=== PATIENT | male | born 1995 | race Asian ===

== ENCOUNTER 2019-06-24 14:12 | Emergency (ER) | payer OTHER ==
[~2019-06-24] VITALS: Ht 185.4 cm; Wt 69.8 kg
[2019-06-24 14:59] LABS: BASO % 0.1 % (0.0-1.0); EOS % 0.1 % (0.0-3.0); HEMATOCRIT 43.9 % (42.0-52.0); HEMOGLOBIN 15.3 g/dl (13.5-17.5); LYMPH # 0.4 10^3/uL (1.5-5.0); MEAN CORPUSCULAR HGB CONC 34.9 g/dl (32.0-36.5); MEAN CORPUSCULAR VOLUME 86.1 fl (80.0-96.0); MONO # 0.6 10^3/uL (0.0-0.8); MONO % 3.9 % (0.0-5.0); NEUTROPHILS # 13.4 10^3/uL (1.5-8.5); NEUTROPHILS % 92.6 % (36.0-66.0); PLATELET COUNT, AUTOMATED 259 10^3/uL (150-450); WHITE BLOOD COUNT 14.4 10^3/uL (4.0-10.0)
[2019-06-24 15:23] LABS: INFLUENZA A AMPLIFICATION NEGATIVE (NEGATIVE); INFLUENZA B AMPLIFICATION POSITIVE (NEGATIVE)
[2019-06-24 15:25] LABS: ALBUMIN 4.5 GM/DL (3.2-5.2); ALT/SGPT 32 U/L (12-78); BILIRUBIN,DIRECT 0.4 MG/DL (0.0-0.2); BILIRUBIN,TOTAL 1.7 MG/DL (0.2-1.0); BLOOD UREA NITROGEN 24 MG/DL (7-18); CARBON DIOXIDE LEVEL 27 MEQ/L (21-32); CHLORIDE LEVEL 103 MEQ/L (98-107); GLOMERULAR FILTRATION RATE > 60.0 (>60); GLUCOSE, FASTING 90 MG/DL (70-100); LIPASE 105 U/L (73-393); POTASSIUM SERUM 3.7 MEQ/L (3.5-5.1); SODIUM LEVEL 137 MEQ/L (136-145); TOTAL PROTEIN 7.7 GM/DL (6.4-8.2)
[2019-06-24] MEDS ORDERED: NS 1,000 ML IV ONE (16:00)
[2019-06-24] MEDS ORDERED: IBUPROFEN 800 MG TAB PO ONE (16:00)
[2019-06-24] MEDS ORDERED: ACETAMINOPHEN 500 MG TAB PO ONE (16:00)
[2019-06-24] MEDS: GASTROGRAFIN SOLUTION 30ML PO SCH ×2 (17:41→18:44)
[2019-06-24] MEDS ORDERED: ISOVUE-370 76% 100ML VIAL (Q9967) As Ordered ONE (18:42)
[2019-06-24 19:13] VITALS: BP 106/51
--- NOTE | 2019-06-24 19:40 | REPVR ---
PROCEDURE INFORMATION: Exam: CT Abdomen And Pelvis With Contrast Exam date and time: 06/24/2019 4:55 PM Age: 23 years old Clinical indication: Abdominal pain; Generalized; Additional info: Abd pain with elevated wbc, R/O infectious process TECHNIQUE: Imaging protocol: Computed tomography of the abdomen and pelvis with intravenous contrast. Radiation optimization: All CT scans at this facility use at least one of these dose optimization techniques: automated exposure control; mA and/or kV adjustment per patient size (includes targeted exams where dose is matched to clinical indication); or iterative reconstruction. Contrast material: ISOVUE 370; Contrast volume: 100 ml; Contrast route: IV; COMPARISON: No relevant prior studies available. FINDINGS: Liver: Normal. No mass. Gallbladder and bile ducts: Mild thickening of the gallbladder wall without evidence of calculi. Clinical correlation to exclude acalculous cholecystitis suggested. Pancreas: Normal. No ductal dilation. Spleen: Normal. No splenomegaly. Adrenals: Normal. No mass. Kidneys and ureters: Normal. No hydronephrosis. Stomach and bowel: There is increased fluid demonstrated in the colon consistent with diarrhea. No mass demonstrated. Appendix: No evidence of appendicitis. Intraperitoneal space: Unremarkable. No free air. No significant fluid collection. Vasculature: Indentation along the superior aspect of the proximal celiac artery consistent with median arcuate ligament syndrome in the appropriate clinical setting. Lymph nodes: Unremarkable. No enlarged lymph nodes. Bladder: Unremarkable as visualized. Reproductive: Unremarkable as visualized. Bones/joints: Unremarkable. No acute fracture. Soft tissues: Unremarkable. IMPRESSION: 1. Mild thickening of the gallbladder wall without evidence of calculi. Although the finding may be related to incomplete distention of the gallbladder, clinical correlation to exclude acalculous cholecystitis suggested. 2. Indentation along the superior aspect of the proximal celiac artery consistent with median arcuate ligament syndrome in the appropriate clinical setting. 3. There is increased fluid demonstrated in the colon consistent with diarrhea. No mass demonstrated. Electronically signed by: Herrera Benitez On 06/24/2019 19:40:12 PM
[2019-06-24] MEDS ORDERED: ONDA4TAB6 PO (20:04)
--- NOTE | 2019-06-25 07:10 | ED PDOC ---
Post-Departure Follow-Up radiology report faxed to [facility] Mary Antunez MD Jun 25, 2019 07:10
== END 2019-06-24 20:33 | disposition home or self-care (01) ==
LOC: M ED 14:12
DX: J11.89 Influenza due to unidentified influenza virus with other manifestations (principal); R93.5 Abnormal findings on diagnostic imaging of other abdominal regions, including retroperitoneum; Z72.0 Tobacco use
CPT/HCPCS: 74177; 80048; 80076; 81001; 83690; 85025; 87502; 99284; Q9963; Q9967